=== PATIENT | female | born 1990 | race Caucasian/White ===

== ENCOUNTER 2021-12-15 14:29 | Emergency (ER) | payer MEDICAID ==
[~2021-12-15] VITALS: Ht 165.1 cm; Wt 66.3 kg
[2021-12-15 14:36] VITALS: BP 123/69
[2021-12-15] MEDS ORDERED: LIDOcaine 1% W/epiNEPHrine 1:100,000 20ml vial SQ ONE ×2 (15:20→15:25)
== END 2021-12-15 16:10 | disposition home or self-care (01) ==
LOC: ER 14:30
DX: N75.0 Cyst of Bartholin's gland (principal)
CPT/HCPCS: 56420; 99284

== ENCOUNTER 2022-01-22 06:43 | Emergency (ER) | payer MEDICAID, OTHER ==
[~2022-01-22] VITALS: Ht 165.1 cm; Wt 75.0 kg
[2022-01-22 06:46] VITALS: BP 132/82
[2022-01-22] MEDS ORDERED: LIDOcaine 1% W/epiNEPHrine 1:100,000 20ml vial IJ ONE (07:05)
[2022-01-22] MEDS ORDERED: ibuprofen 200mg tablet PO ONE (07:15)
== END 2022-01-22 08:04 | disposition home or self-care (01) ==
LOC: ER 06:43
DX: N75.0 Cyst of Bartholin's gland (principal); N76.4 Abscess of vulva
CPT/HCPCS: 56420; 99284